=== PATIENT | male | born 1960 | race Caucasian/White ===

== ENCOUNTER 2022-03-12 10:12 | Outpatient (CLI) | payer OTHER, SELFPAY ==
[2022-03-12 17:05] LABS: Chloride* 108 mmol/L (96-114); Potassium* 4.4 mmol/L (3.6-5.1); Sodium* 140 mmol/L (135-149)
[2022-03-12 17:07] LABS: Cholesterol* 173 mg/dL (90-199)
[2022-03-12 17:08] LABS: Blood Urea Nitrogen* 22 mg/dL (7-30); Calcium* 8.6 mg/dL (8.4-10.6); Carbon Dioxide* 27 mmol/L (20-32); Creatinine* 0.9 mg/dL (0.5-1.5); Estimated Glomerular Filt Rate 98.38; Glucose* 121 mg/dL (60-115); HDL Cholesterol* 36 mg/dL (>=40); LDL Cholesterol Calculated 75 mg/dL (<100); Triglycerides* 308 mg/dL (40-149)
== END 2022-03-12 10:13 | disposition home or self-care (01) ==
PROVIDERS: PCP Family Medicine; Visit Provider Family Medicine
DX: Z01.818 Encounter for other preprocedural examination (principal); E78.5 Hyperlipidemia, unspecified; I10 Essential (primary) hypertension
CPT/HCPCS: 80048; 80061

== ENCOUNTER 2022-03-14 09:12 | Day surgery (SDC) | payer OTHER, SELFPAY ==
[2022-03-14] VITALS (22 sets, daily range): BP systolic 100–153; BP diastolic 65–97; PULSE 58–81; RESP 12–20; TEMP 35.8–36.7; O2SAT 93–100; BMI 28.5
[2022-03-14] MEDS: LACTATED RINGERS 1000 ML 1,000 ML 100 ML IV ×2 (09:30→11:59)
[2022-03-14] MEDS: OXYCODONE (CR) 10 MG TAB.ER.12H PO (11:07)
[2022-03-14] MEDS: ACETAMINOPHEN 500 MG TABLET 1000 MG PO ×2 (11:07→17:37)
[2022-03-14] MEDS: CELECOXIB 200 MG CAPSULE PO ×2 (11:07→20:45)
[2022-03-14] MEDS: fentaNYL 100 MCG/2 ML inj IVP (11:10)
[2022-03-14] MEDS: MIDAZOLAM HCL 1 MG/ML inj IVP (11:10)
--- NOTE | 2022-03-14 11:15 | SUR.PREOP ---
TIME?OUT:?1110, left knee PT/RN/MDA?VERIFICATION?OF?SURGICAL?SITE,?PROCEDURE,?AND?CONSENT OBTAINED?PRIOR?TO?INVASIVE?PROCEDURE.
[2022-03-14] MEDS: CEFAZOLIN 2 GM INJ IVP (11:50)
--- NOTE | 2022-03-14 12:22 | CRLHL7_ITS ---
For Patients: As a result of the Cures Act, medical imaging exams and procedure reports are released immediately into your electronic medical record. You may view this report before your referring provider. If you have questions, please contact your health care provider. Indication: POST OP TKA Technique: Two views left knee Findings/Impression: Hardware from a left total knee arthroplasty is in satisfactory position. Bone alignment is normal. No sign of acute fracture. Postop changes are within normal limits. Dictated by Richi Olmedo MD @ 03/14/2022 2:07:04 PM (Electronically Signed)
--- NOTE | 2022-03-14 12:54 | P.NB_ITS ---
Nerve Block Nerve Block Date Seen: 03/14/22 Type of block requested by surgeon for post-operative analgesia: adductor canal Side: left Time out performed: Yes Verification of patient name: Yes Verification of date of : Yes Site marking: site marked Name of person performing procedure: Juan Continuous monitoring Was continuous monitoring of O2 sat, B/P, hospital monitor, recorded every 15 minutes?: Yes Procedure Checklist: sterile prep, needles and gloves Ultrasound guided. Images saved: Yes Medications given in 5ml increments after negative aspiration: Ropivicaine %: 0.5 mL: 20 Needle gauge: 22 Decadron (mg): 10 Precedex (mcg): 25 Patient tolerated procedure well: Yes Additional comments: Needle noted adjacent to nerve
--- NOTE | 2022-03-14 12:55 | P.NB_ITS ---
Nerve Block Nerve Block Date Seen: 03/14/22 Type of block requested by surgeon for post-operative analgesia: geniculars Side: left Time out performed: Yes Verification of patient name: Yes Verification of date of : Yes Site marking: site marked Name of person performing procedure: Juan Continuous monitoring Was continuous monitoring of O2 sat, B/P, printing shop supervisor, recorded every 15 minutes?: Yes Procedure Checklist: sterile prep, needles and gloves Ultrasound guided. Images saved: Yes Medications given in 5ml increments after negative aspiration: Ropivicaine %: 0.5 mL: 9 Needle gauge: 25 Patient tolerated procedure well: Yes Additional comments: Needle noted adjacent to nerve
--- NOTE | 2022-03-14 13:00 | P.ORPRC_ITS ---
Procedure Note Procedure: SURGEON: Van Ricketts MD MOLD SETTER: GERARD Noyola PREOPERATIVE DIAGNOSIS: Left knee osteoarthritis POSTOPERATIVE DIAGNOSIS: Left knee osteoarthritis NAME OF OPERATION: Left total knee arthroplasty ANESTHESIA: Spinal ESTIMATED BLOOD LOSS: 0 mL COMPLICATIONS: None SPECIMENS: None DRAINS: None PREOPERATIVE ANTIBIOTICS: Ancef 2 grams IMPLANTS: 1. J&J Attune #6 posterior stabilized femur 2. #6 fixed-bearing tibia 3. #6 posterior stabilized, 5 mm fixed-bearing polyethylene 4. 41 patella INDICATIONS: The patient is a 61-year-old male with a longstanding history of severe, unrelenting left knee pain secondary to end-stage (grade IV) left knee osteoarthritis. Despite appropriate nonoperative management, including activity modification, anti-inflammatories, iuqa-vdv-rbjzazt pain medication, bracing, physical therapy, and injections they continue to have pain and disability. Operative intervention was offered. The risks, benefits and expected outcomes were discussed in detail. These included but were not limited to: Infection, bleeding, injury to blood vessel or nerve, venous thromboembolism. All questions were answered to their satisfaction. Use of an client account assistant was necessary throughout the case for patient positioning and safety, soft tissue retraction, and closure. PROCEDURE: Spinal anesthesia was administered. The patient was placed supine on the operating table. The client account assistant made sure the patient was positioned appropriately. The lower extremity was prepped and draped in the usual sterile fashion. The limb was exsanguinated with the Segun bandage. The pneumatic tourniquet was inflated to 300 mmHg. A standard anterior incision was made with the knee in flexion. Subcutaneous dissection was sharply taken through fascial layer #1. Full-thickness medial and lateral flaps were elevated. The client account assistant retracted the soft tissues and protected them throughout the case. A standard medial parapatellar approach was made. The patella was everted. The infrapatellar fat pad was preserved. The menisci and cruciate ligaments were sharply d?brided. Marginal osteophytes were d?brided with the rongeur. The drill was used to penetrate the femoral canal. The canal was aspirated and irrigated with pulse lavage. The intramedullary femoral guide was placed for a 5-degree valgus cut, removing 10 mm off the distal femur. The saw was used to make the cut. Whitesides line and the trans epicondylar axis were marked. The femoral sizing guide was pinned onto the distal femur. Three degrees of external rotation nicely parallels the transepicondylar axis. Pins were placed for posterior referencing. The four-in-one cutting guide was pinned onto the distal femur. The anterior, posterior, and chamfer cuts were made. The client account assistant protected the collateral ligaments. The box cutting guide was pinned. The box cuts were made. The boxed trial was placed and was an excellent fit. Drill holes for the lugs were made. Attention was then turned to the proximal tibia. The extramedullary tibial guide was placed for a neutral varus/valgus cut with 5 degrees of posterior slope, removing 2 mm based off the medial tibial surface. The client account assistant protected the collateral ligaments and the neurovascular bundle. The saw was used to make the cut. Trial components were placed. The knee was nicely balanced in both flexion and extension. Rotation of the tibial component was matched to the femur in full extension, matched to our tibial cutting pins, and marked with cautery. The trial components were removed. The tray was pinned by the client account assistant and the drill and the punch were used. The tray was removed. The punch was used again. We placed a bone plug in the femoral canal. Attention was then turned to the patella. Atka patellar thickness was 26 mm. The lobster claw resection guide was used with the 9.5 mm reina. The saw was used to make the cut. Drill holes were made by the client account assistant. The trial was placed and was an excellent fit. Cancellous surfaces were irrigated with pulse lavage and thoroughly dried by the client account assistant. We cemented the tibial component, then the femoral component. A trial spacer was placed. The knee was brought into full extension. We then cemented the patellar component. Excessive cement was removed. The cement was allowed to harden. Any remaining excessive cement was removed with the osteotome. We impacted the 5 mm polyethylene onto the tibial tray. The knee was taken through a range of motion and was found to be nicely balanced in both flexion and extension. The patella tracks centrally. The client account assistant did a three minute dilute Betadine solution soak. The client account assistant irrigated the wound with 3 liters of normal saline via pulse lavage. The client account assistant reapproximated the extensor mechanism with #1 Vicryl in an interrupted pciyse-am-xkdyb fashion. The client account assistant then ran the extensor mechanism with a #1 PDO Stratafix. The client account assistant closed the subcutaneous tissues with a 3-0 Stratafix and the skin with a running 3-0 Stratafix in a subcuticular fashion. Glue was used to seal the skin. The client account assistant placed a dry dressing, LNYN stocking, and Polar Care. Sponge and needle counts were correct x2. The patient tolerated the procedure well. There were no apparent complications. They were carefully transferred to the hospital bed and taken to the postanesthesia care unit in satisfactory condition. PLAN: The patient will be mobilized with physical therapy. Aspirin will be used for DVT prophylaxis. They will be discharged to home once medically appropriate.
--- NOTE | 2022-03-14 13:38 | W.ANESCHARGE ---
Anesthesia Charges Start Date/Time Anesthesia Start Date: 03/14/22 Anesthesia Start Time: 11:30 Stop Date/Time Anesthesia Stop Date: 03/14/22 Anesthesia Stop Time: 13:34 Summary Emergency: No
--- NOTE | 2022-03-14 14:02 | W.ANESCHARGE ---
Anesthesia Charges Start Date/Time Anesthesia Start Date: 03/14/22 Anesthesia Start Time: 11:30 Stop Date/Time Anesthesia Stop Date: 03/14/22 Anesthesia Stop Time: 13:34 Summary Emergency: No
[2022-03-14] MEDS: LACTATED RINGERS 1000 ML 1,000 ML 35 ML IV (14:05)
[2022-03-14] MEDS: CEFAZOLIN 2 GM in 0.9 % SODIUM CHLORIDE Mini-bag 100 ML IVPB (20:31)
[2022-03-14] MEDS: ASPIRIN 81 MG TABLET EC PO (20:44)
[2022-03-14] MEDS: SENNOSIDES 1 TAB TABLET 2 TAB PO (20:45)
--- NOTE | 2022-03-14 22:21 | PM.IMPN1 ---
Progress Note: A&P Assessment and plan (1) Osteoarthritis of left knee: Status: Acute Plan 1. s/p Left TKA 2. Hx of ROX 3. Hx of HTN 4. Hx of insomnia 5. Hx of HLD 6. Hx of Depression Plan -pain control, diet; dvt ppx per surgery -continue statin, zoloft, metoprolol Time Spent With Patient Total time spent: 25 minutes Subjective Time Seen by Provider: 18:00 Date Seen: 03/14/22 Interval history: s/p left TKA EBL minimal Spinal anesthesia Doing well after surgery denies chest pain, sob, nausea, vomiting post op pain controlled Exam Narrative: Exam Narrative: Gen: no acute distress HEENT: NCAT EOMI MMM CV: RRR normal s1 s2 Lungs: CTAB Abd: soft, nt ,nd Neuro: Nonfocal exam; alert oriened MSK: moves extremities Const: Vital Signs, click to edit/add: Vital Signs - 24 hr 03/14/22 10:09 03/14/22 11:10 03/14/22 11:22 Temperature 97.5 F L Pulse Rate 60 65 63 Pulse Rate [Right Pulse Oximeter] Respiratory Rate 20 20 20 Blood Pressure 136/83 150/90 H 126/80 Blood Pressure [Le ft Arm] Pulse Oximetry 96 03/14/22 13:30 03/14/22 13:35 03/14/22 13:40 Temperature 97.8 F Pulse Rate 63 65 59 L Pulse Rate [Right Pulse Oximeter] Respiratory Rate 12 12 14 Blood Pressure 100/70 109/70 107/71 Blood Pressure [Le ft Arm] Pulse Oximetry 94 95 97 03/14/22 13:45 03/14/22 13:50 03/14/22 13:55 Temperature 97.6 F Pulse Rate 67 61 60 Pulse Rate [Right Pulse Oximeter] Respiratory Rate 12 12 12 Blood Pressure 112/74 114/73 120/79 Blood Pressure [Le ft Arm] Pulse Oximetry 97 97 98 03/14/22 14:00 03/14/22 14:11 03/14/22 14:15 Temperature 96.5 F L Pulse Rate 58 L 64 Pulse Rate [Right Pulse Oximeter] 62 Respiratory Rate 12 16 16 Blood Pressure 121/81 Blood Pressure [Le ft Arm] 126/82 130/83 Pulse Oximetry 98 99 03/14/22 14:30 03/14/22 14:45 03/14/22 15:00 Temperature 96.7 F L 96.7 F L Pulse Rate Pulse Rate [Right Pulse Oximeter] 66 63 66 Respiratory Rate 18 16 16 Blood Pressure Blood Pressure [Le ft Arm] 132/88 138/91 H 144/97 H Pulse Oximetry 100 98 97 03/14/22 15:30 03/14/22 16:00 03/14/22 16:30 Temperature 97.9 F Pulse Rate Pulse Rate [Right Pulse Oximeter] 71 70 77 Respiratory Rate 18 18 16 Blood Pressure Blood Pressure [Le ft Arm] 139/86 140/97 H 131/78 Pulse Oximetry 98 95 93 03/14/22 18:00 03/14/22 19:00 Temperature 97.7 F 97.7 F Pulse Rate Pulse Rate [Right Pulse Oximeter] 81 81 Respiratory Rate 16 16 Blood Pressure Blood Pressure [Le ft Arm] 116/69 116/65 Pulse Oximetry 94 95
[2022-03-15 00:23] VITALS: TEMP 36.7
[2022-03-15] MEDS: ACETAMINOPHEN 500 MG TABLET 1000 MG PO ×3 (00:23→11:12)
[2022-03-15] MEDS: CEFAZOLIN 2 GM in 0.9 % SODIUM CHLORIDE Mini-bag 100 ML IVPB (05:14)
--- NOTE | 2022-03-15 05:33 | PC.NURSE ---
Addendum entered by Lorri Bull RN 03/15/22 06:44: PT STATES HE ONLY PASSED FLATUS PRIOR TO SURGERY. BS ACTIVE X4 QUADRANTS. Original Note: SHIFT NOTE [id number]: PT PLEASANT AND COOPERATIVE. PT RATES LEFT KNEE PAIN 0-2/10 WITH RELIEF FROM REPOSITIONING, CRYO CUFF, SCHEDULED PAIN MEDS. VSS AND WNL ON RA; AFEBRILE. PT AMBULATES WITH WALKER, GB, SBA; TOLERATES ACTIVITY WELL. PT DID NOT SLEEP WELL DURING THE NIGHT PT REPORTS HE TAKES AMBIEN AT HOME AND DID NOT HAVE IT HERE. MINIMAL POST OP SWELLING TO LEFT KNEE WITH DRESSING CDI. PT PASSING FLATUS.
[2022-03-15 07:44] LABS: INR 1.09 (0.91-1.10); Prothrombin Time 14.5 Seconds
[2022-03-15 07:59] VITALS: BP 130/73; PULSE 80; RESP 18; TEMP 36.9; O2SAT 99
[2022-03-15 08:01] VITALS: PULSE 80; RESP 18
--- NOTE | 2022-03-15 08:02 | PM.ORPN ---
Subjective Subjective Time Seen by Provider: 07:15 Date Seen: 03/15/22 Principal diagnosis: Status post left total knee arthroplasty Interval history: s/p left TKA EBL minimal Spinal anesthesia Doing well after surgery denies chest pain, sob, nausea, vomiting post op pain controlled Ortho Exam Narrative Exam Narrative: Alert and oriented x3. Patient is in no acute distress. Converses without labored breathing. Hearing is grossly intact. Examination of the left knee shows the incision is covered by a dressing that is clean, dry, and intact. Effusion is present. Mild soft tissue edema about the left knee. Lalo stockings are in place. Bilateral calves are soft and nontender. CMS is intact left lower extremity. Const Vital Signs, click to edit/add: Vital Signs - 24 hr 03/14/22 10:09 03/14/22 11:10 03/14/22 11:22 Temperature 97.5 F L Pulse Rate 60 65 63 Pulse Rate [Right Pulse Oximeter] Respiratory Rate 20 20 20 Blood Pressure 136/83 150/90 H 126/80 Blood Pressure [Left Arm] Pulse Oximetry 96 03/14/22 13:30 03/14/22 13:35 03/14/22 13:40 Temperature 97.8 F Pulse Rate 63 65 59 L Pulse Rate [Right Pulse Oximeter] Respiratory Rate 12 12 14 Blood Pressure 100/70 109/70 107/71 Blood Pressure [Left Arm] Pulse Oximetry 94 95 97 03/14/22 13:45 03/14/22 13:50 03/14/22 13:55 Temperature 97.6 F Pulse Rate 67 61 60 Pulse Rate [Right Pulse Oximeter] Respiratory Rate 12 12 12 Blood Pressure 112/74 114/73 120/79 Blood Pressure [Left Arm] Pulse Oximetry 97 97 98 03/14/22 14:00 03/14/22 14:11 03/14/22 14:15 Temperature 96.5 F L Pulse Rate 58 L 64 Pulse Rate [Right Pulse Oximeter] 62 Respiratory Rate 12 16 16 Blood Pressure 121/81 Blood Pressure [Left Arm] 126/82 130/83 Pulse Oximetry 98 99 03/14/22 14:30 03/14/22 14:45 03/14/22 15:00 Temperature 96.7 F L 96.7 F L Pulse Rate Pulse Rate [Right Pulse Oximeter] 66 63 66 Respiratory Rate 18 16 16 Blood Pressure Blood Pressure [Left Arm] 132/88 138/91 H 144/97 H Pulse Oximetry 100 98 97 03/14/22 15:30 03/14/22 16:00 03/14/22 16:30 Temperature 97.9 F Pulse Rate Pulse Rate [Right Pulse Oximeter] 71 70 77 Respiratory Rate 18 18 16 Blood Pressure Blood Pressure [Left Arm] 139/86 140/97 H 131/78 Pulse Oximetry 98 95 93 03/14/22 18:00 03/14/22 19:00 03/14/22 20:00 Temperature 97.7 F 97.7 F 97.7 F Pulse Rate Pulse Rate [Right Pulse Oximeter] 81 81 78 Respiratory Rate 16 16 16 Blood Pressure Blood Pressure [Left Arm] 116/69 116/65 111/65 Pulse Oximetry 94 95 94 03/14/22 23:00 03/15/22 00:23 03/15/22 07:59 Temperature 98.1 F 98.1 F 98.4 F Pulse Rate Pulse Rate [Right Pulse Oximeter] 80 80 Respiratory Rate 14 18 Blood Pressure Blood Pressure [Left Arm] 153/87 H 130/73 Pulse Oximetry 95 99 Assessment and Plan Assessment and plan (1) Status post total left knee replacement: Problem details: Plan for discharge is today to home if they meet discharge criteria. DVT prophylaxis includes aspirin 81 mg twice daily x1 month, Lalo stockings x1 month may remove for 1 hr per day, frequent ambulation Remove dressing in 1 week. Observe wound and phone Orthopedics with any questions or concerns Return to clinic in 1 week for a wound check Return to clinic in [address] Ricketts Minimize narcotic use. Wean off and discontinue soon as possible. Activities as tolerated. No strenuous activity. Outpatient physical therapy as scheduled. Ice and elevate the operative extremity. No restriction on ice. Status: Acute
[2022-03-15] MEDS: ASPIRIN 81 MG TABLET EC PO (09:10)
[2022-03-15] MEDS: METOPROLOL SUCCINATE (XL) 25 MG TAB PO (09:10)
[2022-03-15] MEDS: SENNOSIDES 1 TAB TABLET 2 TAB PO (09:10)
[2022-03-15] MEDS: SERTRALINE 100 MG TABLET 150 MG PO (09:10)
[2022-03-15] MEDS: ROSUVASTATIN CALCIUM 10 MG TABLET PO (09:10)
[2022-03-15] MEDS: CELECOXIB 200 MG CAPSULE PO (09:11)
[2022-03-15 09:26] LABS: Chloride* 105 mmol/L (96-114); Sodium* 136 mmol/L (135-149)
[2022-03-15 09:27] LABS: Potassium* 4.2 mmol/L (3.6-5.1)
[2022-03-15 09:29] LABS: Creatinine* 0.8 mg/dL (0.5-1.5); Est. Creatinine Clearance* 109.13; Estimated Glomerular Filt Rate 101.95
[2022-03-15 09:30] LABS: Blood Urea Nitrogen* 25 mg/dL (7-30); Carbon Dioxide* 26 mmol/L (20-32)
[2022-03-15 09:31] LABS: Hematocrit 36.4 % (37.0-53.0); Hemoglobin* 12.6 gm/dL (13.5-17.5); Mean Corpuscular HGB Conc 35 gm/dL (32-36); Mean Corpuscular Hemoglobin 31 pg (26-34); Mean Corpuscular Volume 89 fL (80-100); Platelet Count* 205 K/uL (140-440); Red Blood Count 4.09 m/uL (4.30-5.90); White Blood Count* 13.28 K/uL (4.50-11.00)
[2022-03-15 09:44] LABS: Slide Review Reflex No
[2022-03-15 11:12] VITALS: TEMP 36.9
[2022-03-15 11:13] VITALS: BP 131/76; PULSE 85; RESP 18; TEMP 36.9; O2SAT 96
[2022-03-15] MEDS: CEFAZOLIN 2 GM INJ IVPB (12:03)
--- NOTE | 2022-03-15 12:11 | PC.NURSE ---
Discharge Note: Pt friendly and cooperative, able to verbalize needs. VS WNL and LS COA. Rates pain 2-3/10, scheduled Tylenol given and Cryocuff in place. Surgical dressing C,D,&I. Pt moves well with SBA with GB and walker. Third dose of ancef infusing, pt to discharge to home when complete. Verbalizes understanding of discharge instructions and follow up appointments.
--- NOTE | 2022-03-15 12:30 | P.EN_ITS ---
Chart Event Note Time Seen by Provider: 12:29 Date Seen: 03/15/22 Chart Event Note: patient is to be discharged to home. His prescriptions, particularly oxycodone, were sent to [facility]. This prescription was canceled and I did the same prescription to [facility] in [place], oxycodone 5 mg number 42.
--- NOTE | 2022-03-15 12:37 | PC.NURSE ---
Discharge meds-- Script for Oxycodone sent to [facility] [place] and cancelled with [facility] delivery via telephone. Spoke to Zeny at [facility]
--- NOTE | 2022-03-18 13:17 | P.DS_ITS ---
DS: Providers Provider Time Seen by Provider: 08:00 Date Seen: 03/15/22 Date of admission: 03/14/2022 Primary care physician: Demetrius Gaxiola MD Admitting Clinician: Van Ricketts MD Consults: 03/14/22 12:58 Consult to Occupational Therapy [CONS] Routine Comment: See nursing Activity Order Reason(s) for OT Consult:: Evaluate and Treat Any Restrictions?:: No Restrictions Consult to Physical Therapy [CONS] Routine Comment: Ambulate in the loza today. Reason(s) for PT Consult:: Evaluate and Treat Any Restrictions?:: No Restrictions Consult to [employer] [CONS] Routine Comment: Reason for Consult:: Discharge Planning Needs Attending Physician on discharge: Van Ricketts MD Date of Discharge: 03/15/22 DS: Diagnosis Discharge Diagnosis (1) Status post total left knee replacement: Status: Acute Problem details: Plan for discharge is today to home if they meet discharge criteria. DVT prophylaxis includes aspirin 81 mg twice daily x1 month, Lalo stockings x1 month may remove for 1 hr per day, frequent ambulation Remove dressing in 1 week. Observe wound and phone Orthopedics with any questions or concerns Return to clinic in 1 week for a wound check Return to clinic in [address] Ricketts Minimize narcotic use. Wean off and discontinue soon as possible. Activities as tolerated. No strenuous activity. Outpatient physical therapy as scheduled. Ice and elevate the operative extremity. No restriction on ice. (2) Osteoarthritis of left knee: Status: Acute (3) Hypertension: Status: Acute Problem details: Clear component of white coat hypertension also (4) Dyslipidemia: Status: Acute Problem details: Patient has both dyslipidemia and mild hyperlipidemia and just started rosuvastatin about 6 weeks ago. Will check lipids today to look for improvement but this does diminishes cardiac risk. (5) Sleep apnea: Status: Acute Problem details: Did not tolerate CPAP. (6) Depression: Status: Acute (7) Anxiety: Status: Acute (8) Attention deficit disorder: Status: Acute (9) Insomnia: Status: Acute DS: Summary Status at Discharge Cognitive/behavioral status at discharge: Alert, oriented to self, place, time, situation. Articulate, cooperative. Thoughts are coherent. Able to make safe decisions on his own behalf. Functional status at discharge: uses cane/walker Overall status at discharge: patient is progressing back to baseline Time Spent with Patient Time attestation: Total time spent providing and/or coordinating discharge services: Time spent: Less than 30 minutes Exam Narrative: Exam Narrative: Lungs are clear to auscultation. Heart tones with regular rhythm, normal S1-S2. Abdomen is active bowel sounds, soft, nontender. Independent transfer, station, and gait with use of walker. No other focal motor neurologic deficits. Skin is warm, dry, intact. Const: Documenting provider has reviewed patient's vital signs: yes Discharge Plan Discharge Disposition: Home, Self-Care Discharging Surgeon: Van Ricketts Follow-Up Appointment: 1 week Prescriptions: New acetaminophen 500 mg Tablet 500 - 1,000 mg PO Q6H PRNQty: 100 0RF aspirin 81 mg Tablet,Delayed Release (Dr/Ec) 81 mg PO BID Qty: 60 0RF sennosides [Senna Lax] 8.6 mg Tablet 17.2 mg PO BID PRNQty: 100 0RF oxycodone 5 mg capsule 2.5 - 5 mg PO Q4H PRN (Reason: pain) Qty: 42 0RF Continued calcium carb-mag ox-zinc sulf 333-133-5 mg tablet 1 tab PO DAILY 0RF Rx Instructions: administer with a meal rosuvastatin 10 mg tablet 10 mg PO DAILY 0RF metoprolol succinate 25 mg tablet extended release 24 hr 25 mg PO DAILY 0RF zolpidem 10 mg tablet 10 mg PO .Bedtime as needed PRN0RF sertraline 100 mg tablet 150 mg PO DAILY 0RF Held aspirin 81 mg tablet,delayed release (DR/EC) 81 mg PO DAILY 0RF Hold Instructions: Resume on 04/12/22. Resume this dose after competion of aspirin 81 mg by mouth twice daily order per orthopedic surgeon Activity Level: Activity as Tolerated and No strenuous activity Activity Detail: Keep dressing on for 1 week. Dressing is waterproof. May shower. Surgical glue covers the wound. Attend Outpatient physical therapy as scheduled. Ice operative extremity without restriction. Wear compression stockings for 1 month post surgery. May remove for 1 hour per day. Notify Orthopedics with any questions or concerns ([phone]). Discharge Diet: Heart Healthy (2 gm sodium, low fat) Patient Instructions: Acetaminophen (By mouth), Aspirin (By mouth) (Jannet Extra Strength, Jannet Aspirin Children's,..., Oxycodone, Rapid Release (By mouth) (ETH-Oxydose, Oxy IR,..., Senna (By mouth) (Senna, Senna-lax), Knee Replacement (DC) Forms: Work/Release Restrictions Follow-up: Earlene Balbuena PAJosefC [Physician Licensed Therapist] - 03/22/22 9:30 am ([facility] - schedule 6 week surgeon appointment at this time.) Demetrius Gaxiola MD [Primary Care Provider] - Discharge Orders: Discharge Order (Routine); Ordered 03/15/22 Ordered By: Clay Carter
== END 2022-03-15 12:40 | disposition home or self-care (01) ==
LOC: OR 09:14 → MEDSURG 09:18
PROVIDERS: Physician Assistant; PCP Family Medicine; Visit Provider Orthopaedic Surgery
PROC: (CPT 27447; principal; 2022-03-14 11:30)
DX: M17.12 Unilateral primary osteoarthritis, left knee (principal); I10 Essential (primary) hypertension; G47.33 Obstructive sleep apnea (adult) (pediatric); E78.5 Hyperlipidemia, unspecified; F32.A Depression, unspecified; F41.9 Anxiety disorder, unspecified
CPT/HCPCS: 27447; 1402; 36415; 64447; 64454; 73560; 76942; 80051; 82565; 84520; 85025; 85027; 85610; 97110; 97116; 97161; 97165; 97530; 97535; A9270; C1776; J0690; J1100; J2250; J2704; J2795; J3010; J7120

== ENCOUNTER 2022-04-26 09:19 | Outpatient (CLI) | payer OTHER, SELFPAY ==
[2022-04-26 13:34] LABS: SARS PCR* POSITIVE SARS-CoV-2 (Negative)
== END 2022-04-26 09:20 | disposition home or self-care (01) ==
LOC: LONREF 09:19
PROVIDERS: PCP Family Medicine; Visit Provider Family Medicine
DX: U07.1 COVID-19 (principal)
CPT/HCPCS: 87635

== ENCOUNTER 2022-05-20 08:00 | Outpatient (RCR) | payer OTHER, SELFPAY | END 2022-07-08 12:16 | disposition home or self-care (01) | PROVIDERS: PCP Family Medicine; Visit Provider Orthopaedic Surgery | DX: M25.562 Pain in left knee (principal); Z51.89 Encounter for other specified aftercare | CPT/HCPCS: 97110; 97161 ==

== ENCOUNTER 2022-08-30 12:30 | Emergency (ER) | payer OTHER, SELFPAY ==
[2022-08-30 12:44] VITALS: BP 178/110; PULSE 88; RESP 20; TEMP 36.5; O2SAT 99; BMI 27.7
--- NOTE | 2022-08-30 13:19 | ED.GENADULT ---
HPI - General Adult General Chief complaint: Sore Throat Stated complaint: sore throat, cough, Time Seen by Provider: 08/30/22 12:35 History of Present Illness HPI narrative: This patient comes in reporting a sore throat for the past several days. He also wondered if he had a fever. He measured his temperature at 99? a few times. He has seen his doctor recently and received a prescription for Diflucan and Lotrimin to treat some skin changes in his groin area. He has not been on any antibiotic treatments recently. He does not report any cough or shortness of breath. Related Data Home Medications Medication Instructions Recorded Confirmed aspirin 81 mg tablet,delayed 81 mg PO DAILY 03/08/22 08/27/22 release calcium carbonate 333 mg-magnesium 1 tab PO DAILY 03/08/22 08/27/22 oxide 133 mg-zinc sulf 5 mg tablet rosuvastatin 10 mg tablet 10 mg PO DAILY 03/08/22 08/27/22 Previous Rx's Medication Instructions Recorded acetaminophen 500 mg tablet 500 - 1,000 mg PO Q6H PRN #100 tabs 03/14/22 alprazolam 0.5 mg tablet (Xanax) 0.5 mg PO QDAY #20 tabs 04/04/22 lidocaine 5 % topical patch 2 patch topical QDAY #15 ea 04/04/22 gabapentin 100 mg capsule 200 mg PO QDAY #180 caps 05/26/22 sertraline 100 mg tablet 150 mg PO DAILY #135 tabs 07/03/22 metoprolol succinate 25 mg 25 mg PO DAILY #90 tabs 07/22/22 tablet,extended release 24 hr zolpidem 10 mg tablet 10 mg PO .QHS #90 tabs 08/19/22 fluconazole 150 mg tablet 150 mg PO Q72H #5 tabs 08/27/22 amoxicillin 500 mg capsule 500 mg PO TID 10 days #30 caps 08/30/22 Allergies Allergy/AdvReac Type Severity Reaction Status Date / Time No Known Allergies Allergy Verified 08/30/22 12:43 Review of Systems Status of ROS: Reports: 10 or more systems reviewed and unremarkable except as noted in History and below Narrative: Constitutional: No fevers, no weight gain or loss. Eyes: No discharge. No vision changes. HENT: No congestion, no sore throat, no ear pain. Cardiovascular: No chest pain, no palpitations. Respiratory: No shortness of breath, no wheezes, no cough. Gastrointestinal: No abdominal pain, no vomiting, no diarrhea. Genitourinary: No dysuria, no hematuria. Musculoskeletal: Normal range of motion. Skin: No rashes, no pruritis. Small paronychial erythema on the right middle finger. Neurological: No dizziness, weakness, sensory change, speech change. Endo/Heme/Allergies: No bruising or bleeding. No polydipsia. Pysch: no suicidality, no anxiety, no insomnia. All other systems reviewed and are negative. PFSH PFS Medical History COVID Surgical History H/O hand surgery Status post arthroscopy of left knee (12/24/11) Status post osteotomy Status post right knee replacement Status post right unicompartmental knee replacement (12/24/11) Status post total left knee replacement (03/14/22) Status post vasectomy (12/24/11) Social History Highest level of school completed/degree received: Associate degree: occupational, technical, vocational program Smoking Status: Never smoker Do you use any of these nicotine containing products: None Second hand tobacco smoke exposure: No How often do you have a drink containing alcohol: never How often do you have six or more drinks on one occasion: Never AUDIT-C Alcohol total score: 0 Non-prescribed substance use: denies use Caffeine: Yes service: No Exam Narrative: Exam Narrative: Constitutional: Well-developed, well-nourished, no acute distress. HEENT: Normocephalic, atraumatic. Oropharynx has erythema without exudate or tonsillar hypertrophy. Neck: Normal range of motion. Nontender. Supple. Heart: Regular. No murmurs. Normal rate. Intact distal pulses. Lungs: Clear to auscultation. No chest discomfort. No wheezes, rhonchi, or rales. Abdomen: Normal bowel sounds. Nontender. No rebound tenderness. Genitalia: Deferred. Back: No midline tenderness. Normal range of motion. Extremities: Normal range of motion. No injury. Skin: Intact. No rash. Warm. No erythema or pallor. Neurologic: No altered sensation. No weakness. Alert and oriented. Psychiatric: No suicidality. No anxiety or depression. No insomnia. Nursing notes and vitals signs are reviewed. Const: Vital Signs, click to edit/add: Vital Signs - 24 hr 08/30/22 12:44 Temperature 97.7 F Pulse Rate [Pulse Oximeter] 88 Respiratory Rate 20 Blood Pressure [Ri ght Forearm] 178/110 H Pulse Oximetry 99 Oxygen Delivery Me thod Room Air Course Vital Signs Vital signs: Initial Vital Signs Temperature 97.7 F 08/30/22 12:44 Temperature Source Temporal Artery Scan 08/30/22 12:44 Pulse Rate 88 08/30/22 12:44 Pulse Rhythm 08/30/22 12:44 Respiratory Rate 20 08/30/22 12:44 Blood Pressure 178/110 H 08/30/22 12:44 Blood Pressure Mean 132 08/30/22 12:44 Blood Pressure Position Supine 08/30/22 12:44 Pulse Oximetry 99 08/30/22 12:44 Oxygen Delivery Method 08/30/22 12:44 Vital Signs Temperature 97.7 F 08/30/22 12:44 Pulse Rate 88 08/30/22 12:44 Respiratory Rate 20 08/30/22 12:44 Blood Pressure 178/110 H 08/30/22 12:44 Pulse Oximetry 99 08/30/22 12:44 Oxygen Delivery Method 08/30/22 12:44 Temperature 97.7 F 08/30/22 12:44 Pulse Rate 88 08/30/22 12:44 Respiratory Rate 20 08/30/22 12:44 Blood Pressure 178/110 H 08/30/22 12:44 Pulse Oximetry 99 08/30/22 12:44 Oxygen Delivery Method 08/30/22 12:44 Medical Decision Making MDM Narrative Medical decision making narrative: This patient comes in with sore throat. PCR testing for strep returns positive. Results for COVID, influenza, and RSV are pending. It is likely that these will be negative and even if positive there would not be any particular change in the treatment plan. This patient received a prescription for amoxicillin. Lab Data Labs: Lab Results 08/30/22 Range/Units 12:56 Group A Strep DNA DETECTED A (Not Detectd) Discharge Plan Discharge Clinical Impression: Acute streptococcal pharyngitis Patient Disposition: Home, Self-Care Condition: Stable Additional Instructions: Take medication as prescribed. Follow up with MD or return if worsening. Prescriptions: New amoxicillin 500 mg capsule 500 mg PO TID 10 Days Qty: 30 0RF No Action calcium carb-mag ox-zinc sulf 333-133-5 mg tablet 1 tab PO DAILY Rx Instructions: administer with a meal rosuvastatin 10 mg tablet 10 mg PO DAILY aspirin 81 mg tablet,delayed release (DR/EC) 81 mg PO DAILY Hold Instructions: Resume on 04/12/22. Resume this dose after competion of aspirin 81 mg by mouth twice daily order per orthopedic surgeon alprazolam [Xanax] 0.5 mg tablet 0.5 mg PO QDAY Qty: 20 0RF lidocaine 5 % adhesive patch,medicated 2 patch topical QDAY Qty: 15 1RF Rx Instructions: leave on most painful area for up to 12 hrs fluconazole 150 mg tablet 150 mg PO Q72H Qty: 5 0RF acetaminophen 500 mg Tablet 500 - 1,000 mg PO Q6H PRNQty: 100 0RF gabapentin 100 mg capsule 200 mg PO QDAY Qty: 180 3RF sertraline 100 mg tablet 150 mg PO DAILY Qty: 135 0RF metoprolol succinate 25 mg tablet extended release 24 hr 25 mg PO DAILY Qty: 90 2RF zolpidem 10 mg tablet 10 mg PO .QHS Qty: 90 1RF Follow Up/Referrals: Demetrius Gaxiola MD [Primary Care Provider] - Stand Alone Forms: [employer] Info Instructions
[2022-08-30 13:38] LABS: Strep A DNA Probe* DETECTED (Not Detectd)
[2022-08-30 13:53] LABS: PCR FLU A Negative PCR FLU A (Negative); PCR FLU B Negative PCR FLU B (Negative); PCR RSV Negative PCR RSV (Negative); SARS PCR* Negative SARS-CoV-2 (Negative)
== END 2022-08-30 14:03 | disposition home or self-care (01) ==
PROVIDERS: Emergency Provider Emergency Medicine Emergency Medical Services; PCP Family Medicine
DX: J02.0 Streptococcal pharyngitis (principal)
CPT/HCPCS: 87502; 87634; 87635; 87651; 99283; 99284

== ENCOUNTER 2022-11-28 13:38 | Emergency (ER) | payer OTHER, SELFPAY ==
[2022-11-28] VITALS (9 sets, daily range): BP systolic 116–151; BP diastolic 84–102; PULSE 91–154; RESP 18; TEMP 36.4; O2SAT 94–100; BMI 27.3
--- NOTE | 2022-11-28 14:15 | ED.CHESTPAIN ---
HPI - Chest Pain General Chief Complaint: Chest Pain Stated Complaint: Chest pain Time Seen by Provider: 11/28/22 13:56 History of Present Illness HPI narrative: This 62-year-old male comes in reporting chest discomfort that began yesterday. He also reports some lightheadedness and shortness of breath. He did not have any nausea, vomiting, or diaphoresis. He arrives with a heart rate at 150 beats per minute which appears to be supraventricular tachycardia. He states that he does take 100 mg caffeine tablet every day. He feels like it is hard to take a deep breath but currently does not describe any chest pain. Related Data Home Medications Medication Instructions Recorded Confirmed aspirin 81 mg tablet,delayed 81 mg PO DAILY 03/08/22 08/27/22 release calcium carbonate 333 mg-magnesium 1 tab PO DAILY 03/08/22 08/27/22 oxide 133 mg-zinc sulf 5 mg tablet rosuvastatin 10 mg tablet 10 mg PO DAILY 03/08/22 08/27/22 Previous Rx's Medication Instructions Recorded acetaminophen 500 mg tablet 500 - 1,000 mg PO Q6H PRN #100 tabs 03/14/22 alprazolam 0.5 mg tablet (Xanax) 0.5 mg PO QDAY #20 tabs 04/04/22 lidocaine 5 % topical patch 2 patch topical QDAY #15 ea 04/04/22 gabapentin 100 mg capsule 200 mg PO QDAY #180 caps 05/26/22 fluconazole 150 mg tablet 150 mg PO Q72H #5 tabs 08/27/22 amoxicillin 500 mg capsule 500 mg PO TID 10 days #30 caps 08/30/22 metoprolol succinate 25 mg 25 mg PO DAILY #90 tabs 09/02/22 tablet,extended release 24 hr sertraline 100 mg tablet 150 mg PO DAILY #135 tabs 09/30/22 zolpidem 10 mg tablet 10 mg PO .QHS #90 tabs 11/06/22 Allergies Allergy/AdvReac Type Severity Reaction Status Date / Time No Known Allergies Allergy Verified 11/28/22 13:41 Review of Systems Status of ROS Reports: 10 or more systems reviewed and unremarkable except as noted in History and below Narrative Constitutional: No fevers, no weight gain or loss. Eyes: No discharge. No vision changes. HENT: No congestion, no sore throat, no ear pain. Cardiovascular: He reports chest tightness. Respiratory: No wheezes, no cough. He reports shortness of breath. Gastrointestinal: No abdominal pain, no vomiting, no diarrhea. Genitourinary: No dysuria, no hematuria. Musculoskeletal: Normal range of motion. Skin: No rashes, no pruritis. Neurological: No dizziness, weakness, sensory change, speech change. Endo/Heme/Allergies: No bruising or bleeding. No polydipsia. Pysch: no suicidality, no anxiety, no insomnia. All other systems reviewed and are negative. PFSH PFS Medical History COVID Surgical History H/O hand surgery Status post arthroscopy of left knee (12/24/11) Status post osteotomy Status post right knee replacement Status post right unicompartmental knee replacement (12/24/11) Status post total left knee replacement (03/14/22) Status post vasectomy (12/24/11) Social History Highest level of school completed/degree received: Associate degree: occupational, technical, vocational program Smoking Status: Never smoker Do you use any of these nicotine containing products: None Second hand tobacco smoke exposure: No How often do you have a drink containing alcohol: never How often do you have six or more drinks on one occasion: Never AUDIT-C Alcohol total score: 0 Non-prescribed substance use: denies use Caffeine: Yes service: No Exam Narrative Exam Narrative: Constitutional: Well-developed, well-nourished, no acute distress. HEENT: Normocephalic, atraumatic. Neck: Normal range of motion. Nontender. Supple. Heart: Irregular. No murmurs. Normal rate. Intact distal pulses. Lungs: Clear to auscultation. No chest discomfort. No wheezes, rhonchi, or rales. Abdomen: Normal bowel sounds. Nontender. No rebound tenderness. Genitalia: Deferred. Back: No midline tenderness. Normal range of motion. Extremities: Normal range of motion. No injury. Skin: Intact. No rash. Warm. No erythema or pallor. Neurologic: No altered sensation. No weakness. Alert and oriented. Psychiatric: No suicidality. No anxiety or depression. No insomnia. Nursing notes and vitals signs are reviewed. Const Vital Signs, click to edit/add: Vital Signs - 24 hr 11/28/22 13:41 11/28/22 14:51 11/28/22 15:00 Temperature 97.6 F Pulse Rate 153 H 152 H Pulse Rate [Pulse Oximeter] 91 Respiratory Rate 18 Blood Pressure Blood Pressure [Right Upper Arm] 151/86 H Pulse Oximetry 100 95 96 Oxygen Delivery Method Room Air 11/28/22 15:02 11/28/22 15:08 11/28/22 15:09 Temperature Pulse Rate 154 H 152 H 148 H Pulse Rate [Pulse Oximeter] Respiratory Rate Blood Pressure 142/100 H 119/84 Blood Pressure [Right Upper Arm] Pulse Oximetry 94 95 95 Oxygen Delivery Method 11/28/22 15:15 11/28/22 15:21 Temperature Pulse Rate 148 H 124 H Pulse Rate [Pulse Oximeter] Respiratory Rate Blood Pressure 116/99 H Blood Pressure [Right Upper Arm] Pulse Oximetry 94 96 Oxygen Delivery Method Course Vital Signs Vital signs: Initial Vital Signs Respiratory Effort Normal, Spontaneous, Non-Labored, Short of Breath 11/28/22 13:39 Respiratory Depth Normal 11/28/22 13:39 Vital Signs Temperature 97.6 F 11/28/22 13:41 Pulse Rate 91 11/28/22 13:41 Respiratory Rate 18 11/28/22 13:41 Blood Pressure 151/86 H 11/28/22 13:41 Pulse Oximetry 100 11/28/22 13:41 Oxygen Delivery Method Room Air 11/28/22 13:41 Temperature 97.6 F 11/28/22 13:41 Pulse Rate 124 H 11/28/22 15:21 Respiratory Rate 18 11/28/22 13:41 Blood Pressure 116/99 H 11/28/22 15:21 Pulse Oximetry 96 11/28/22 15:21 Oxygen Delivery Method Room Air 11/28/22 13:41 MDM - Chest Pain MDM Narrative Medical decision making narrative: This patient comes in with symptoms as described above. He was noted to be in an abnormal rhythm with a rate also of 150 beats per minute. The rhythm appeared to be super ventricular tachycardia as it seemed to be rather regular however with the increased rate it is hard to distinguish this. I did elect to give 6 mg of Adenocard intravenously. He did feel the affected this medicine but it made no difference in his rate or rhythm. He then received 20 mg of diltiazem intravenously which brought control of the rate but he was then noted to be in atrial fibrillation pattern. I discussed options going forward with the patient including his candidacy for electrocardioversion. He was agreeable to this plan. As arrangements were being made for propofol sedation the patient spontaneously converted back into normal sinus rhythm so no such cardioversion was necessary. His lab results return with reassuring findings. His troponin is in normal range. His potassium was slightly low at 3.2. He did receive an oral dose of 10 mEq of potassium. The patient is taking a low dose of metoprolol daily. He is okay to be discharged home to continue his current plans and is instructed to return if symptoms are recurrent. Lab Data Labs: Lab Results 11/28/22 11/28/22 Range/Units 14:00 14:14 WBC 10.10 (4.50-11.00) K/uL RBC 5.74 (4.30-5.90) m/uL Hgb 17.6 H (13.5-17.5) gm/dL Hct 49.0 (37.0-53.0) % MCV 85 (80-100) fL MCH 31 (26-34) pg MCHC 36 (32-36) gm/dL RDW Coeff of Amira 11.7 (11.5-15.5) % Plt Count 265 (140-440) K/uL Neut % (Auto) 66.0 (42.0-72.0) % Lymph % (Auto) 28.1 (20-44) % [place] % (Auto) 5.4 (0.0-11.0) % Eos % (Auto) 0.3 (0.0-7.0) % Baso % (Auto) 0.1 (0.0-3.0) % Neut # (Auto) 6.66 (1.7-7.0) K/uL Lymph # (Auto) 2.84 (0.90-2.90) K/uL [place] # (Auto) 0.50 (0.00-0.90) K/UL Eos # (Auto) 0.03 (0.00-0.50) K/uL Baso # (Auto) 0.01 (0.00-0.30) K/uL D-Dimer Quant (PE/DVT) 0.38 (0.00-0.50) ug/ml Sodium 137 (135-149) mmol/L Potassium 3.2 L (3.6-5.1) mmol/L Chloride 103 (96-114) mmol/L Carbon Dioxide 24 (20-32) mmol/L BUN 26 (7-30) mg/dL Creatinine 1.1 (0.5-1.5) mg/dL Estimated Creat Clear 80.71 Estimated GFR 77 ml/min Glucose 148 H (60-115) mg/dL Calcium 9.2 (8.4-10.6) mg/dL TSH 2.150 (0.270-4.20) uIU/mL POC Troponin I 0.01 (0.01-0.04) ng/ml ECG Data Attestation: I personally reviewed and interpreted this ECG as follows: Interpretation: Initial EKG shows a rate of 150 beats per minute. This is possible atrial flutter or supraventricular tachycardia. There are no specific ST or T-wave abnormalities. Repeat EKG after Adenocard shows similar rate and rhythm. Third EKG after spontaneous cardioversion shows normal sinus rhythm, rate is 64 beats per minute. There are no specific ST or T-wave abnormalities. Discharge Plan Discharge Clinical Impression: Atrial fibrillation with rapid ventricular response Patient Disposition: Home, Self-Care Condition: Improved Additional Instructions: Continue current plans. Follow up with primary physician or return if symptoms are recurrent or worsening. Prescriptions: No Action calcium carb-mag ox-zinc sulf 333-133-5 mg tablet 1 tab PO DAILY Rx Instructions: administer with a meal rosuvastatin 10 mg tablet 10 mg PO DAILY aspirin 81 mg tablet,delayed release (DR/EC) 81 mg PO DAILY Hold Instructions: Resume on 04/12/22. Resume this dose after competion of aspirin 81 mg by mouth twice daily order per orthopedic surgeon alprazolam [Xanax] 0.5 mg tablet 0.5 mg PO QDAY Qty: 20 0RF lidocaine 5 % adhesive patch,medicated 2 patch topical QDAY Qty: 15 1RF Rx Instructions: leave on most painful area for up to 12 hrs fluconazole 150 mg tablet 150 mg PO Q72H Qty: 5 0RF acetaminophen 500 mg Tablet 500 - 1,000 mg PO Q6H PRNQty: 100 0RF amoxicillin 500 mg capsule 500 mg PO TID 10 Days Qty: 30 0RF gabapentin 100 mg capsule 200 mg PO QDAY Qty: 180 3RF metoprolol succinate 25 mg tablet extended release 24 hr 25 mg PO DAILY Qty: 90 3RF sertraline 100 mg tablet 150 mg PO DAILY Qty: 135 3RF zolpidem 10 mg tablet 10 mg PO .QHS Qty: 90 1RF Follow Up/Referrals: Demetrius Gaxiola MD [Primary Care Provider] - Stand Alone Forms: [facility] Info Instructions
[2022-11-28 14:27] LABS: Basophils Absolute Auto 0.01 K/uL (0.00-0.30); Basophils Percent Auto 0.1 % (0.0-3.0); Eosinophils Absolute Auto 0.03 K/uL (0.00-0.50); Eosinophils Percent Auto 0.3 % (0.0-7.0); Hemoglobin* 17.6 gm/dL (13.5-17.5); Immature Granulocytes Abs Auto 0.01 K/uL (0.00-0.30); Immature Granulocytes Pct Auto 0.1 %; Lymphocytes Absolute Auto 2.84 K/uL (0.90-2.90); Lymphocytes Percent Auto 28.1 % (20-44); Mean Corpuscular HGB Conc 36 gm/dL (32-36); Mean Corpuscular Hemoglobin 31 pg (26-34); Mean Corpuscular Volume 85 fL (80-100); Monocytes Percent Auto 5.4 % (0.0-11.0); Neutrophils Absolute Auto 6.66 K/uL (1.7-7.0); Platelet Count* 265 K/uL (140-440); RDW Coefficient of Variation % 11.7 % (11.5-15.5); Red Blood Count 5.74 m/uL (4.30-5.90)
[2022-11-28 14:37] LABS: Troponin, Point-of-Care* 0.01 ng/ml (0.01-0.04)
[2022-11-28] MEDS: ADENOSINE 6 MG/2ML INJ IVP (14:38)
[2022-11-28 14:50] LABS: Chloride* 103 mmol/L (96-114); Potassium* 3.2 mmol/L (3.6-5.1); Sodium* 137 mmol/L (135-149)
[2022-11-28 14:52] LABS: Creatinine* 1.1 mg/dL (0.5-1.5); Est. Creatinine Clearance* 80.71; Estimated Glomerular Filt Rate 77 ml/min
[2022-11-28 14:53] LABS: Blood Urea Nitrogen* 26 mg/dL (7-30); Calcium* 9.2 mg/dL (8.4-10.6); Carbon Dioxide* 24 mmol/L (20-32); Glucose* 148 mg/dL (60-115)
[2022-11-28 14:54] LABS: D Dimer Quantitative* 0.38 ug/ml (0.00-0.50)
[2022-11-28] MEDS: 0.9 % SODIUM CHLORIDE 500 ML 500 ML IV (14:58)
--- NOTE | 2022-11-28 15:12 | ED.NURSE ---
Patient given 10mg diltiazem at 1506 as part of divided dose of 20mg orders. Waiting to see toleration of BP before administering second 10 mg.
[2022-11-28 15:13] LABS: Slide Review Reflex No
[2022-11-28] MEDS: dilTIAZem 5 MG/ML inj 20 MG IVP (15:20)
--- NOTE | 2022-11-28 17:09 | ED.NURSE ---
Patient noted to have cardiac conversion on hospital monitor. EKG completed on patient and MD notified.
== END 2022-11-28 17:53 | disposition home or self-care (01) ==
PROVIDERS: Emergency Provider Emergency Medicine Emergency Medical Services; PCP Family Medicine
DX: I48.20 Chronic atrial fibrillation, unspecified (principal)
CPT/HCPCS: 36415; 80048; 84443; 84484; 85025; 85379; 93005; 96374; 99284; J0153; J7120

== ENCOUNTER 2023-03-04 12:44 | Outpatient (CLI) | payer OTHER, SELFPAY ==
[2023-03-04 13:46] VITALS: BP 154/84; PULSE 76; RESP 18
--- NOTE | 2023-03-04 14:10 | W.PM.STED ---
Stress Test Note Date Date of test: 03/04/23 Providers Referring provider: Molly Rdz Primary care provider: Demetrius Gaxiola Stress test physician: Ceferino Rose Stress Test Note Stress test ordered: Stress Echo Indication for test: Chest pain Results discussion: Patient is a 62-year-old gentleman who presents here for a stress echo with the primary indication of chest pain, unfortunately took his metoprolol 12 hours ago, but would still like to proceed pretest cardiac stress test medical history form is reviewed, patient understands the risks benefits and side effects of this. Pretest EKG shows normal sinus rhythm, with a ventricular rate of 58, BP is 142/84, following standard Guille protocol, patient is exercised for a total time of 7:41. Test is terminated because of fatigue, along with shortness of breath. Patient was unable to get to his target, conditioning was felt to be poor, during this test there was no significant ST wave changes suggestive of ischemia, there is no dysrhythmias, patient recovered normally. Impression: Negative electrographic portion of stress echo, inadequate heart rate, decreases sensitivity. Await echo read, clinically feel this is high likelihood consider repeating test with Lexiscan Follow up suggested: Await echo images clinical correlation with this will be needed. Suggest clinical correlation and more consider repeating Lexiscan if needed.
== END 2023-03-04 13:53 | disposition home or self-care (01) ==
LOC: STRESS 12:45
PROVIDERS: PCP Family Medicine; Visit Provider Family Medicine
DX: R07.9 Chest pain, unspecified (principal); I48.91 Unspecified atrial fibrillation
CPT/HCPCS: 93016; 93325; 93351

== ENCOUNTER 2023-07-07 13:45 | Outpatient (RCR) | payer OTHER, SELFPAY | END 2023-10-06 15:09 | disposition home or self-care (01) | PROVIDERS: PCP Family Medicine; Visit Provider Nurse Practitioner Family | DX: M54.2 Cervicalgia (principal); Z51.89 Encounter for other specified aftercare | CPT/HCPCS: 97110; 97140; 97161 ==

== ENCOUNTER 2024-03-18 12:37 | Outpatient (CLI) | payer OTHER, SELFPAY | END 2024-03-18 12:38 | disposition home or self-care (01) | PROVIDERS: PCP Family Medicine; Visit Provider Nurse Practitioner Family | DX: Z00.00 Encounter for general adult medical examination without abnormal findings (principal); E78.5 Hyperlipidemia, unspecified; I10 Essential (primary) hypertension; Z12.5 Encounter for screening for malignant neoplasm of prostate | CPT/HCPCS: 80053; 80061; G0103 ==

== ENCOUNTER 2024-07-19 07:07 | Outpatient (CLI) | payer OTHER, SELFPAY ==
--- NOTE | 2024-07-19 07:15 | CRLHL7_ITS ---
For Patients: As a result of the Century Cures Act, medical imaging exams and procedure reports are released immediately into your electronic medical record. You may view this report before your referring provider. If you have questions, please contact your health care provider. INDICATION: Headaches. Shoulder pain. Comparison 06/05/2023. Technique : Sagittal T1, T2, and STIR sequences. Axial T2/gradient sequences. FINDINGS: Cervical curve convex to the right. In sagittal plane, straightening of the normal cervical doses which may be secondary to muscle spasm or patient positioning. Normal vertebral body and facet alignment. Degenerative fusion across the left C2-3, C3-4 and C4-5 facet joints. Normal cord signal. No intradural mass or lesion. C1-2: No spinal canal narrowing. C2-3: No narrowing of spinal canal. Mild narrowing of the left neural foramen. No narrowing of the right neural foramen. C3-4: No narrowing of the spinal canal. Uncovertebral and facet joint hypertrophy results in mild narrowing of the left neural foramen. No narrowing of the right neural foramen. C4-5: Postop changes. No narrowing of the spinal canal. Mild narrowing of the left neural foramen. No narrowing of the right neural foramen. C5-6: Disc degeneration and posterior disc bulge disc osteophyte complex. No narrowing of the spinal canal. Uncovertebral joint hypertrophy results in moderate narrowing of the left neural foramen. No narrowing of the right neural foramen. C6-7: Disc generation broad-based disc osteophyte complex. Mild narrowing of the spinal canal. No neural foraminal narrowing. C7-T1: No spinal canal or neural foraminal narrowing. IMPRESSION: 1. Straightening of the normal cervical lordosis. 2. Otherwise normal alignment. No fractures 3. Cervical spondylosis. 4. Normal cord signal. 5. At C3-4 and C4-5, mild narrowing of the left neural foramen 6. At C5-6, moderate narrowing of the left neural foramen. 7. At C6-7, mild narrowing of the spinal canal Dictated by Prince Boykin MD @ 07/19/2024 11:30:45 AM (Electronically Signed)
== END 2024-07-19 07:08 | disposition home or self-care (01) ==
PROVIDERS: PCP Nurse Practitioner Family; Visit Provider Nurse Practitioner Family
DX: M54.2 Cervicalgia (principal); M47.892 Other spondylosis, cervical region; M50.21 Other cervical disc displacement, high cervical region; M50.221 Other cervical disc displacement at C4-C5 level; M50.222 Other cervical disc displacement at C5-C6 level; M50.223 Other cervical disc displacement at C6-C7 level; R51.9 Headache, unspecified
CPT/HCPCS: 72141

== ENCOUNTER 2024-07-19 10:23 | Outpatient (RCR) | payer OTHER, SELFPAY | END 2024-10-27 13:50 | disposition home or self-care (01) | PROVIDERS: PCP Nurse Practitioner Family; Visit Provider Orthopaedic Surgery | DX: M17.11 Unilateral primary osteoarthritis, right knee (principal); M25.561 Pain in right knee; Z96.651 Presence of right artificial knee joint; Z51.89 Encounter for other specified aftercare | CPT/HCPCS: 97110; 97162 ==

== ENCOUNTER 2025-08-26 16:33 | Emergency (ER) | payer OTHER, SELFPAY ==
--- OUTSIDE RECORDS SUMMARY | 2009-11-07 18:00 | XMS_ITS | Continuity of Care Document ---
Author Organization [facility] Address [address] [address] [place] [address] Phone Care Team Providers Care [employer] One Dealer Name Role Phone Unavailable Unavailable Unavailable Procedures Procedure Date Init Inpt Cons New/est Mod-hi 0 Ugi Endo; Dx W/wo Collec Specm 10 Advance Directives Directive Yes / No Effective Date File Name No Information Encounters Encounter Description Practice Location Reason(s) For Visit Diagnoses Date Provider Providers Copied on Encounter Init Inpt Cons New/est Mod-[facility], [address] [address], [place], [place], [id number], [place] tel:[phone] [facility] No Information 0 No Information Family History Family Member Type Diagnosis Age At Onset No Information Payers Payer name Insurance type Covered alliance party ID Authoriza tion(s) No Information Social History Type Description Quantity Date Captured Comments Sex Male Smoking Status No Information Chief Complaint And Reason For Visit No Information Reason For Referral Reason For Referral No Information History Of Present Illness Encounter Date Complaint History Of Prese nt Illness No Information Functional Status Date Functional Assessmen t No Information Instructions Date Instruction Additional Infor mation No Information Assessments Type Assessment Date No Information Patient Care Teams Name Effective Dates (start - stop) Status Members No Information
[2025-08-26] VITALS (8 sets, daily range): BP systolic 154–164; BP diastolic 89–94; PULSE 51–57; RESP 11–18; TEMP 36.1; O2SAT 95–98; BMI 28.5
--- OUTSIDE RECORDS SUMMARY | 2025-08-26 16:36 | XMS_ITS | Clinical Summary ---
Author Organization [employer] [facility] Address [address] [place] [id number] Care Team Providers Care Mds Nurse Name Role Phone Pcp, No Primary Care Provider Unavailabl e Allergies No known active allergies Medications MedicationSigDispense QuantityRefillsLast FilledStart DateEnd DateStatus acetaminophen (TYLENOL EXTRA STRGTH) 500 mg tablet Take 1-2 tablets by mouth every 6 hours if needed for Pain. Max acetaminophen dose: 4000mg in 24 hrs. 1 tablet ctive ALPRAZolam (XANAX) 0.5 mg tablet Take 0.25 mg (1/2 tablet) by mouth as needed up to three times dailyActive zolpidem (AMBIEN) 10 mg tablet Take 1 tablet by mouth at bedtime if needed for Sleep. 0.5 tablet ctive Active Problems ProblemNoted DateDiagnosed XvofGhivddfppof69/03/2010ack pain11/08/2009nxiety 11/08/2009Elevated triglycerides with high umcfymzpkjc21/03/2010 Immunizations ImmunizationAdministration DatesNext DueInfluenza A (H1N1), Inactivated (Age >=3 Years)07/20/2009Influenza, IIV3 (Age >=3 years)05/30/2009 Social History Tobacco UseTypesPacks/DayYears UsedDateSmoking Tobacco: NeverAlcohol UseStandard Drinks/WeekCommentsYes0 (1 standard drink = 0.6 oz pure alcohol)Social ConnectionsAnswerDate RecordedFrequency of Communication with Friends and Family Not on file03/04/2023Sex and Gender InformationValueDate RecordedSex Assigned at BirthNot on fileLegal PwiSfxc4009/21/2012 6:08 AM CSTGender IdentityNot on file Sexual OrientationNot on file Last Filed Vital Signs Vital SignReadingTime TakenCommentsBlood [id number]/8805 11:01 AM CDT [id number] 2:00 PM NJAUvliennqavm60.7 ??C (98.1 ??F)11/08/2009 12:00 PM CSTRespiratory Cvhn1164 2:00 PM CSTOxygen Dnkqzqcktp71%11/08/2009 2:00 PM CSTInhaled Oxygen Concentration--Dhygcm45 kg (200 lb 9.9 oz)11/08/2009 1:00 AM VDBHlllnj140.4 cm (6' 1)11/08/2009 1:00 AM CSTBody Mass Index26.4703 1:00 AM CHIEF DEPUTY Plan of Treatment Health MaintenanceDue DateLast DoneCommentsTetanus sbscezc7307/29/1973Depression screening for age 12+1974HIV for age 15-BMI (ht and wt on same day) for age 18+1980Hepatitis C screening for age 18- Colonoscopy through age Lipids for age 45-Pneumococcal series for age 50+ (1 of 1 - PCV)2012Zoster (shingles) series for age 50+ (1 of 2)2012COVID-19 vaccine series (3 - 2024- season)2025 10/05/2021, 09/14/2021Influenza Vaccine (#1)RSV vaccine for adults or (1 - 1-dose 75+ series)2037Hepatitis B series for 19+ Aged OutNo longer eligible based on patient's age to complete this topic Insurance Advance Directives * Full Code (Latest Code Status on File) Date ActivatedDate InactivatedComments11/08/2009 9:33 AM11/08/2009 5:39 PM * Full Code Date ActivatedDate InactivatedComments11/08/2009 1:18 AM11/08/2009 9:33 AM Care Teams Team MemberRelationshipSpecialtyStart DateEnd Date Pcp, Kareen PCP - General09/13/10
--- NOTE | 2025-08-26 17:00 | CRLHL7_ITS ---
For Patients: As a result of the Century Cures Act, medical imaging exams and procedure reports are released immediately into your electronic medical record. You may view this report before your referring provider. If you have questions, please contact your health care provider. INDICATION: Chest pain. TECHNIQUE: Chest 2 view. COMPARISON: None. FINDINGS: Cardiovascular: Heart size and pulmonary vasculature are within normal limits. Lungs and pleural spaces: No focal consolidation, pleural effusion, or pneumothorax. There is a 6 mm nodular opacity in the right lower lung. Bones and soft tissues: No significant findings. IMPRESSION: 1. No acute cardiopulmonary findings. 2. 6 mm nodular opacity in the right lower lung. This could be further evaluated with nonemergent CT of the chest. Dictated by Sandi Ramirez MD @ 08/26/2025 6:04:53 PM (Electronically Signed)
--- NOTE | 2025-08-26 17:04 | ED_ITS ---
HPI - General Adult General Chief complaint: Chest Pain Stated complaint: Chest pain Time Seen by Provider: 08/26/25 16:35 Source: patient Mode of arrival: ambulatory Limitations: no limitations History of Present Illness HPI narrative: 65-year-old male with no prior history of coronary artery disease presents to the emergency department for evaluation of chest pain. This is been ongoing for 2 years but there has been more persistent for the past 2-3 weeks, most bothersome this morning. Symptoms are intermittent. Not necessarily exertional. Tends to happen more at rest. Substernal without radiation. Is accompanied by feeling of shortness of breath. No fever. He reports some notable prior history of atrial fibrillation, was evaluated in the emergency department. It sounds like he had a yesterday heart monitor and a stress test afterwards but the stress test was inconclusive. I reviewed the records and it looks like it was satisfactory, a stress echo from July of 2024 is reviewed. EF was noted to be 70-75% but of good overall function. No major valvular wall abnormalities. I review in ED repair port from November of 2022 and this does show a diagnosis of atrial fibrillation, had a single episode of RVR and was cardioverted. It does not sound as though he had any persistent symptoms since. He does have a notable history of hypertension, is maintained on metoprolol and losartan. He is modified for hyperlipidemia with rosuvastatin. He does endorse exertional fatigue and difficulty losing weight. He is on fairly high doses of sertraline for depression. He denies any history of DVT or PE. No recent fevers or productive cough. Today, symptoms started more than 8 hours ago, have been intermittent and are not currently present. Did have an episode when driving over the lasted less than 10 minutes, at rest. Did not worsen with trying to walk into the emergency room. He also does endorse a feeling of postprandial bloating that has been ongoing for several months, no pain with this. No prior workup for this ailment. Cardiac risk factors include hyperlipidemia, prior AFib and hypertension. No known drug allergies. Medications reviewed, list is accurate per patient. Nonsmoker. ROS is notable for the chest and abdominal symptoms as above, otherwise denies times 12 systems. Related Data Home Medications ?Medication ?Instructions ?Recorded ?Confirmed aspirin 81 mg tablet,delayed 81 mg PO DAILY 03/08/22 1 10/27/24 release Held on 03/15/22. Instructions: Resume on 04/12/22. Resume this dose after competion of aspirin 81 mg by mouth twice daily order per orthopedic surgeon Previous Rx's ?Medication ?Instructions ?Recorded acetaminophen 500 mg tablet 500 - 1,000 mg (1 - 2 x 50 0 mg) PO 03/14/22 Q6H PRN #100 tabs lidocaine 5 % topical patch 2 patch topical QDAY #15 e a 04/04/22 losartan 100 mg tablet 100 mg PO QDAY #90 tabs 12/31 metoprolol succinate 50 mg 50 mg PO QDAY 90 days #90 t abs 04/11/25 tablet,extended release 24 hr rosuvastatin 10 mg tablet 10 mg PO QDAY #90 tabs 04/11 sertraline 100 mg tablet 150 mg (1.5 x 100 mg) PO BRAIN LY 04/11/25 #135 tabs zolpidem 10 mg tablet 10 mg PO QHS PRN insomnia #9 0 tabs 04/19/25 Allergies Allergy/AdvReac Type Severity Reaction Status Date / Time No Known Allergies Allergy Verified 04/11/25 15:11 PFSH PFS Medical History Hypertriglyceridemia ?E78.1 - Pure hyperglyceridemia (ICD-10) Chronic fatigue ?R53.82 - Chronic fatigue, unspecified (ICD-10) Neck Pain ?M54.2 - Cervicalgia (ICD-10) COVID ?U07.1 - COVID-19 (ICD-10) Surgical History Status post osteotomy ?Z98.890 - Other specified postprocedural states (ICD-10) Status post total left knee replacement (03/14/22) ?Z96.652 - Presence of left artificial knee joint (ICD-10) H/O hand surgery ?Z98.890 - Other specified postprocedural states (ICD-10) Status post vasectomy ?Z98.52 - Vasectomy status (ICD-10) Status post right unicompartmental knee replacement ?Z96.651 - Presence of right artificial knee joint (ICD-10) Status post arthroscopy of left knee ?Z98.890 - Other specified postprocedural states (ICD-10) Social History Narrative: former smoker-smoked for 5 years quit age 18., 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, IT ,rare etoh What is your current living situation?: I presently have a place to live Problems where you live: no known problems In the past 12 months, utilities in danger of being shut off: no In past 12 months, lack of transportation kept you from medical appts, meetings, work, or getting things needed for daily living: no In the past 12 mos, have been you worried that your food would run out before you had money to buy more?: never true In the past 12 mos, the food you bought just didn't last and you didn't have money to buy more?: never true Highest level of school completed/degree received: Associate degree: occupational, technical, vocational program Smoking Status: Former smoker What tobacco products do you use: cigarettes Smoking quit date/years: >15 years ago Do you use any of these nicotine containing products: None Second hand tobacco smoke exposure: No How often do you have a drink containing alcohol: never How often do you have six or more drinks on one occasion: Never AUDIT-C Alcohol total score: 0 Non-prescribed substance use: denies use Caffeine: Yes How often does anyone, including family, friends and others, physically hurt you : never How often does anyone, including family, friends and others, insult or talk down to you: never How often does anyone, including family, friends and others, threaten you with harm: never How often does anyone, including family, friends and others, scream or curse at you: never service: No Exam Const: Vital Signs, click to edit/add: Vital Signs - 24 hr 08/26/25 16:37 08/26/25 16:43 08/26/25 16:45 Temperature 97 F L Pulse Rate 57 L 56 L Pulse Rate [Pulse Oximeter] 54 L Respiratory Rate 18 13 17 Blood Pressure 164/94 H Blood Pressure [Le ft Upper Arm] 164/94 H Pulse Oximetry 97 98 97 Oxygen Delivery Me thod Room Air 08/26/25 16:47 08/26/25 17:00 08/26/25 17:02 Temperature Pulse Rate 54 L 55 L 54 L Pulse Rate [Pulse Oximeter] Respiratory Rate 11 L 13 Blood Pressure 154/90 H 157/89 H Blood Pressure [Le ft Upper Arm] Pulse Oximetry 97 96 98 Oxygen Delivery Me thod 08/26/25 17:17 08/26/25 17:30 Temperature Pulse Rate 57 L 51 L Pulse Rate [Pulse Oximeter] Respiratory Rate 12 Blood Pressure Blood Pressure [Le ft Upper Arm] Pulse Oximetry 96 95 Oxygen Delivery Me thod Documenting provider has reviewed patient's vital signs: yes Common normals: no apparent distress General appearance: cooperative and well kempt HENMT: Common normals: normocephalic and moist oral mucous membranes Head and scalp: normocephalic Mouth: oral and palatal mucosa normal Eye: Common normals: conjunctivae normal General eye: normal appearance of both eyes Conjunctiva: conjunctiva(e) normal Neck & C-Spine: Common normals: full ROM and no lymphadenopathy General: normal visual inspection Resp: Common normals: normal respiratory effort, no use of accessory muscles and clear to auscultation bilaterally Effort & inspection: able to speak in complete sentences Auscultation: clear to auscultation bilaterally Cardio: Common normals: regular rate, regular rhythm, S1 normal heart sound, S2 normal heart sound and no murmurs Rate: regular rate Rhythm: regular rhythm Heart sounds: S1 normal and S2 normal GI: Common normals: Normal to inspection, nondistended, normoactive bowel sounds present, soft to palpation, non-tender, no hepatosplenomegaly and no masses Palpation: soft and no hepatosplenomegaly Extremity: Common normals: normal to inspection and normal capillary refill Neuro: Speech: speech normal Motor exam: strength 5/5 throughout Psych: Common normals: speech normal Appearance: well kempt Attitude: engaged Activity/motor behavior: appropriate eye contact Speech: normal speech Insight: insight good Judgement: judgment good Skin: Common normals: no rashes or lesions noted General skin exam: no rashes or lesions noted Course Course ED Course: 65-year-old male with intermittent chest pain at rest, not reproducible with exertion. Does have a few risk factors for heart disease, normal stress test 13 months ago. Differential diagnosis including bouts of AFib, arrhythmia, acute coronary syndrome, heart failure, referred GI pain from gallbladder disease, GERD, musculoskeletal etiology, respiratory etiology, amongst others. Recommended chest x-ray, EKG, typical cardiac and also GI labs. Will give aspirin 324 p.o. x1, placed on environmental monitoring specialist and await findings. Since he has been symptomatic for several hours, I do not think he needs multiple sets of enzymes. May benefit from a repeat so patch to see if he is having breakthrough episodes of AFib or consideration for additional consult. Await findings. Reevaluation(s) Time of Reevaluation #1: 18:28 Reevaluation #1: Reviewed findings with patient who is asymptomatic at this time. no signs of elevated troponin, abnormalities on chest x-ray. His heart rate is consistently in the low to mid 50s but I see no signs of AFib or other abnormality. He does have a spot on chest x-ray that will need further outpatient workup. At this time, we reviewed the alarm symptoms and I think he is safe to discharge home. I would like for him to have another ZIO patch placed to look for episodes of AFib that could be contributing to shortness of breath and chest pain. We should consider that is beta-bernard may be causing some symptomatology and potential changes to his medication regimen may be helpful. It would be helpful to know if he was having episodes of AFib or not to help better decide this. We could consider a Cardiology consult or doing a nuclear stress test to look more closely at the coronary arteries as well. Patient will keep a symptom diary for the next 2 weeks and follow up with primary care doctor to arrange the outpatient CT, ZIO patch and additional workup if warranted. He will continue on his home medications In the interim, written instructions are provided. Vital Signs Vital signs: Initial Vital Signs Temperature 97 F L 08/26/25 16:37 Temperature Source Temporal Artery Scan 08/26/25 16:37 Pulse Rate 54 L 08/26/25 16:37 Respiratory Rate 18 08/26/25 16:37 Blood Pressure 164/94 H 08/26/25 16:37 Blood Pressure Mean 117 H 08/26/25 16:37 Blood Pressure Position Supine 08/26/25 16:37 Pulse Oximetry 97 08/26/25 16:37 Oxygen Delivery Method Room Air 08/26/25 16:37 Vital Signs Temperature 97 F L 08/26/25 16:37 Pulse Rate 54 L 08/26/25 16:37 Respiratory Rate 18 08/26/25 16:37 Blood Pressure 164/94 H 08/26/25 16:37 Pulse Oximetry 97 08/26/25 16:37 Oxygen Delivery Method Room Air 08/26/25 16:37 Temperature 97 F L 08/26/25 16:37 Pulse Rate 51 L 08/26/25 17:30 Respiratory Rate 12 08/26/25 17:17 Blood Pressure 157/89 H 08/26/25 17:02 Pulse Oximetry 95 08/26/25 17:30 Oxygen Delivery Method Room Air 08/26/25 16:37 Medications Administered Medications: Discontinued Medications Generic Name Dose Route Start Last Admin Trade Name Que PRN Reason Stop Dose Admin Aspirin 324 mg 08/26/25 17:00 08/26/25 17:11 Aspirin 81 Mg Tab.Chew PO 08/26/25 17:01 324 mg ONCE ONE Administration Medical Decision Making Lab Data Lab results reviewed: Yes I reviewed the patient's lab results Lab results narrative: Labs reassuring. Troponins are negative, BNP negative, inflammatory markers are negative. No significant signs of infection, kidney disease or electrolyte abnormalities. GI workup also benign. Labs: Lab Results 08/26/25 08/26/25 Range/Units 16:45 17:00 WBC 7.52 (4.50-11.00) K/uL RBC 5.25 (4.30-5.90) m/uL Hgb 16.1 (13.5-17.5) gm/dL Hct 48.0 (37.0-53.0) % MCV 91 (80-100) fL MCH 31 (26-34) pg MCHC 34 (32-36) gm/dL RDW Coeff of Amira 12.0 (11.5-15.5) % Plt Count 233 (140-440) K/uL Neut % (Auto) 55.7 (42.0-72.0) % Lymph % (Auto) 33.6 (20-44) % Granite % (Auto) 8.8 (0.0-11.0) % Eos % (Auto) 1.7 (0.0-7.0) % Baso % (Auto) 0.1 (0.0-3.0) % Neut # (Auto) 4.18 (1.7-7.0) K/uL Lymph # (Auto) 2.53 (0.90-2.90) K/uL Granite # (Auto) 0.70 (0.00-0.90) K/UL Eos # (Auto) 0.13 (0.00-0.50) K/uL Baso # (Auto) 0.01 (0.00-0.30) K/uL Abs Immat Gran (auto) 0.01 (0.00-0.30) K/uL Imm/Tot Granulo (auto) 0.1 % D-Dimer Quant (PE/DVT) 0.30 (0.00-0.50) ug/ml Sodium 138 (135-149) mmol/L Potassium 3.9 (3.6-5.1) mmol/L Chloride 102 (96-114) mmol/L Carbon Dioxide 28 (20-32) mmol/L Anion Gap 8 (7-15) mEq/L BUN 25 (7-30) mg/dL Creatinine 1.0 (0.5-1.5) mg/dL Estimated Creat Clear 85.45 Estimated GFR 85 ml/min Glucose 95 (60-115) mg/dL Calcium 8.7 (8.4-10.6) mg/dL Total Bilirubin 0.9 (0.1-1.5) mg/dL AST 27 (12-35) U/L ALT 31 (4-50) U/L Alkaline Phosphatase 71 (40-150) U/L Troponin I < 0.01 (0.01-0.04) ng/mL POC Troponin I High Sensi 5.8 (2.9-28.0) pg/mL C-Reactive Protein < 0.5 L (0.5-1.0) mg/dL NT-Pro-B Natriuret Pep 97 (See Note) pg/mL Total Protein 7.8 (6.0-8.3) g/dL Albumin 4.5 (3.3-5.0) g/dL Lipase 120 (23-300) U/L Imaging Data Chest x-ray: Attestation: I have reviewed the pertinent imaging results. My impression: Normal chest x-ray. Radiologist's impression: IMPRESSION: 1. No acute cardiopulmonary findings. 2. 6 mm nodular opacity in the right lower lung. This could be further evaluated with nonemergent CT of the chest. Dictated by Sandi Ramirez MD @ 08/26/2025 6:04:53 PM ECG Data Attestation: I personally reviewed and interpreted this ECG as follows: Prior ECG tracings: available for review ( Comparison EKG 07/28/2024.) Interpretation: Sinus rhythm with a rate of 62. There are a couple of PVCs. Overall, normal intervals and axis, there are some subtle ST changes in lead to but they are certainly not 1 full box. They do seem consistent with the comparison from last year. stable EKG. Discharge Plan Discharge Clinical Impression: Chest pain Patient Disposition: Home, Self-Care Condition: Improved Instructions: Chest Pain (DC) Additional Instructions: as we discussed, there are no signs of heart attack, heart failure, abnormal heart rhythm or abdominal abnormalities today. We can only do a limited workup for these things in the emergency room. Would recommend that you follow-up with your primary care provider to have a wear a heart monitor placed. Unfortunately, I am out of them here today. I am curious if the episodes that you are having are related to more episodes of atrial fibrillation like you have had in the past. If this workup is benign, we could consider doing a nuclear stress test to look more closely at the arteries in your heart as well for your provider may choose to get a consult from a welder tack. The shortness of breath and fatigue that you are experiencing could be from your medications. Your heart rate has consistently been in the 50s here in the emergency room. Knowing if you are having bouts of AFib again may help us know if switching around your medications may be helpful for you. For now, I want you to return to the emergency room if you have persistent symptoms, especially if on exertion that are relieved by rest. Continue taking your medications as prescribed and keep a symptom diary. make a follow-up appointment with her primary care provider for about 2-3 weeks from now. Together, you can decide is a team what is the next best step for workup. You also have a benign appearing scar tissue spot on your chest x-ray that will need an outpatient follow-up CT, this is not urgent. Your primary care doctor will arrange this. Please ask about it at your follow-up visit Activity Level: No Restrictions Discharge Diet: Regular Prescriptions: No Action aspirin 81 mg tablet,delayed release (DR/EC) 81 mg PO DAILY lidocaine 5 % adhesive patch,medicated 2 patch topical QDAY Qty: 15 1RF Rx Instructions: leave on most painful area for up to 12 hrs losartan 100 mg tablet 100 mg PO QDAY Qty: 90 3RF metoprolol succinate 50 mg tablet extended release 24 hr 50 mg PO QDAY 90 Days Qty: 90 3RF rosuvastatin 10 mg tablet 10 mg PO QDAY Qty: 90 3RF sertraline 100 mg tablet 150 mg PO DAILY Qty: 135 3RF acetaminophen 500 mg Tablet 500 - 1,000 mg PO Q6H PRNQty: 100 0RF zolpidem 10 mg tablet 10 mg PO QHS PRN (Reason: insomnia) Qty: 90 1RF Follow Up/Referrals: Clarissa Bell C[employer] SPECIALIST [Primary Care Provider, Family Practice] Stand Alone Forms: MyHealth Info Instructions
[2025-08-26] MEDS: ASPIRIN 81 MG TAB.CHEW 324 MG PO (17:11)
[2025-08-26 17:20] LABS: Hematocrit* 48.0 % (37.0-53.0); Hemoglobin* 16.1 gm/dL (13.5-17.5); Immature Granulocytes Abs Auto 0.01 K/uL (0.00-0.30); Immature Granulocytes Pct Auto 0.1 %; Lymphocytes Absolute Auto 2.53 K/uL (0.90-2.90); Mean Corpuscular HGB Conc 34 gm/dL (32-36); Mean Corpuscular Hemoglobin 31 pg (26-34); Mean Corpuscular Volume 91 fL (80-100); RDW Coefficient of Variation % 12.0 % (11.5-15.5); Red Blood Count* 5.25 m/uL (4.30-5.90); White Blood Count* 7.52 K/uL (4.50-11.00)
[2025-08-26 17:34] LABS: Slide Review Reflex No
[2025-08-26 17:39] LABS: D Dimer Quantitative* 0.30 ug/ml (0.00-0.50)
[2025-08-26 17:40] LABS: Chloride* 102 mmol/L (96-114)
[2025-08-26 17:41] LABS: Albumin* 4.5 g/dL (3.3-5.0); Potassium* 3.9 mmol/L (3.6-5.1); Sodium* 138 mmol/L (135-149)
[2025-08-26 17:44] LABS: Alanine Aminotransferase* 31 U/L (4-50); Alkaline Phosphatase* 71 U/L (40-150); Anion Gap 8 mEq/L (7-15); Aspartate Amino Transferase* 27 U/L (12-35); Bilirubin Total* 0.9 mg/dL (0.1-1.5); Blood Urea Nitrogen* 25 mg/dL (7-30); Carbon Dioxide* 28 mmol/L (20-32); Creatinine* 1.0 mg/dL (0.5-1.5); Est. Creatinine Clearance* 85.45; Estimated Glomerular Filt Rate 85 ml/min; Total Protein* 7.8 g/dL (6.0-8.3)
[2025-08-26 17:45] LABS: Calcium* 8.7 mg/dL (8.4-10.6); Glucose* 95 mg/dL (60-115)
[2025-08-26 17:54] LABS: NT Pro B Type NatriureticPept* 97 pg/mL (See Note)
== END 2025-08-26 18:40 | disposition home or self-care (01) ==
PROVIDERS: Emergency Provider Family Medicine; PCP Nurse Practitioner Family
DX: R07.9 Chest pain, unspecified (principal)
CPT/HCPCS: 36415; 71046; 80053; 83690; 83880; 84484; 85025; 85379; 86140; 93005; 99284; A9270